=== PATIENT | female | born 1940 | race Caucasian/White ===

== ENCOUNTER 2019-02-26 06:45 | Inpatient (IN) ==
--- NOTE | 2019-02-26 06:54 | History & Physical Report ---
Date of Encounter: 02/26/19 Time of Encounter: 06:54 24 Hour HP Update - Instructions Instructions: If the History and Physical is less than 30 days old and was completed prior to A.M. admission and or procedure and has NOT been updated on calendar day of procedure please complete this update prior to performing procedure. - Update Patient reports changes in Medical Condition: No Changes in examination, assessment, or condition: No Changes in Medication: No Preop tests/diagnostics Reviewed: Yes Surgery Remains Indicated: Yes Consent for Planned Operative Procedure(s) Verified: Yes - Pre-Operative Checklist Preoperative Checklist Indicated: No Prophylactic Antibiotic Ordered: Yes Is VTE Prophylaxis Indicated?: Yes
[2019-02-26] MEDS ORDERED: Dexamethasone 4 MG/ML VIAL ONE (07:18)
[2019-02-26] MEDS ORDERED: *HR* Succinylcholine 200 MG/10 ML VIAL IVP ONE (07:18)
[2019-02-26] MEDS ORDERED: Ethanol\\Acetic Acid\\Na Ace\\Ben 1,000 ML IRRIG.SOLN IR ONE (07:18)
[2019-02-26] MEDS ORDERED: Lidocaine -MPF 2% 2 ML VIAL ONE (07:18)
[2019-02-26] MEDS ORDERED: Ondansetron 4 MG/2 ML VIAL ONE (07:18)
[2019-02-26] MEDS ORDERED: Lidocaine HCL 4 ML Topical Solution (Laryng-O-Jet Kit Sterile Pak) TP ONE (07:19)
[2019-02-26] MEDS ORDERED: *HR* Propofol 200 MG/20 ML VIAL IVP ONE (07:19)
[2019-02-26] MEDS ORDERED: *HR* FentaNYL (PF) 100 MCG/2 ML VIAL ONE (07:19)
[2019-02-26] MEDS ORDERED: Acetaminophen IV 1,000 MG/100 ML INFUS..BTL IVPB ONE (07:38)
[2019-02-26] MEDS ORDERED: *HR* OxyCODONE Immed Rel 5 MG TABLET PO PRN ×2 (07:39→10:49)
--- NOTE | 2019-02-26 07:42 | Anesthesia Evaluation PreOp ---
Date of Encounter: 02/26/19 Time of Encounter: 07:40 - Past History Planned Operation: Right total shoulder, reverse, Left shoulder injection Cardiac History: HTN, Arrhythmia (bigeminy after surgery - per patient, has been seen by a ux specialist since (had negative stress 2-2018)) Pulmonary History: LE Dx (has CPAP machine, setting 8 mmHg) JAVASCRIPT ENGINEER History: Denies Any Significant HX Other Medical History: Denies Any Significant HX Anesthesia History: Problems (post-op respiratory failure (requires supplemental oxygen after surgery - sometimes for a few days)) Medications and Allergies Allergy/AdvReac Type Severity Reaction Status Date / Time No Known Allergies Allergy Verified 02/26/19 07:37 - Meds/Allergy Pre-op Review Medications Reviewed: Yes Allergies Reviewed: Yes Beta Blockers on Current Med List: Yes If Beta Blockers taken, Date/Time (Last Dose taken): 02-26-19 metoprolol 3:30 Anesthesia Results - Labs Laboratory Tests 02/19/19 02/19/19 02/19/19 09:50 09:50 09:50 WBC 7.4 Hgb 13.6 Hct 42.8 Plt Count 318 PT 11.5 INR 1.0 APTT 32.8 Sodium 139 Potassium 3.7 Chloride 99 Carbon Dioxide 32 H BUN 33 H Creatinine 0.72 Est GFR ( Amer) > 60 Est GFR (Non-Af Amer) > 60 BUN/Creatinine Ratio 46 H - Imaging EKG: report reviewed, image reviewed (SINUS RHYTHM WITH FIRST DEGREE AV BLOCK BORDERLINE LEFT AXIS DEVIATION) Anesthesia Exam Last Vital Signs Temp 98.0 F 02/26/19 07:24 Pulse 67 02/26/19 07:24 Resp 18 02/26/19 07:24 BP 117/64 02/26/19 07:24 Pulse Ox 92 02/26/19 07:24 Weight: 115 kg NPO (# of Hours): > 8 hrs - HEENT Pupil (Motor): Pupils equal, EOMI Mallampati: III Teeth: Normal Oral Opening: Greater than 3 - JAVASCRIPT ENGINEER LOC: Oriented - Cardiac Rhythm: Regular Murmur: None - Pulmonary Breath Sounds: bilateral Clear Respiratory Effort: Symmetrical Anesthesia Assess/Plan ASA Score: 3 Level of consciousness: Cooperative Anesthetic Plan: General, Regional Nerve Block Regional Nerve Block Plan: Supraclavicular Monitoring Plan: Standard Monitors Recovery Plan: PACU
[2019-02-26] MEDS ORDERED: Ropivacaine/PF 0.5% 30 ML VIAL ONE (07:44)
[2019-02-26] MEDS ORDERED: MethylPREDNISolone Acet(DEPOT) 80 MG/ML VIAL ONE (07:46)
[2019-02-26] MEDS ORDERED: MethylPREDNISolone Acet(DEPOT) 40 MG/ML VIAL ONE (07:46)
[2019-02-26] MEDS ORDERED: ROPIVACAINE/PF/NS 0.25% 1 EACH SYRINGE INTRAART ONE (07:54)
[2019-02-26] MEDS ORDERED: CeFAZolin Syr 2,000MG/20 ML 2,000 MG/20 ML SYRINGE IVPB ONE (07:56)
[2019-02-26] MEDS ORDERED: Ringers Solution, Lactated 1,000 ML IVC SCH ×2 (08:00→10:49)
--- NOTE | 2019-02-26 09:16 | Anesthesia Procedures ---
Date of Encounter: 02/26/19 Time of Encounter: 08:38 Procedures: Anesthesia - Nerve Block Procedure Date: 02/26/19 Time: 08:38 Allergies/Adv Reactions: nkda Pre-op Diagnosis: right shoulder and left shoulder arthritis Surgical Procedure: right total shoulder /left shoulder injection Checklist: Correct Patient Identifier, Correct procedure, History checked Correct side: Right Blood Thinner: No Monitor Applied: EKG, BP, Pulse Oximetry Supplemental Oxygen via Nasal Cannula (L/min): 2 Sedation: Fentanyl (mcg): 100 Indication: Post Op Analgesia Pre-op Neuro Deficits: No Block Type: Supraclavicular (icb/scp) Catheter placed: No Sterile Technique: Yes Ultrasound used: Yes Anatomy identified: Yes Visual spread of Local: Yes Neuro Stimulation: Yes Nerve Stimulator Range: 0.2 - 0.4 mA Blood on Needle Aspiration: No Smooth Injection of Local: Yes Pain with Injection of Local: No Prep: Chlorhexadine Needle: 22 x 50 mm Stimuplex Local: Ropivacaine (0.5% with 8mg decadron for sc block -20ml ), Other (0.25% ropi icb+scp 10ml each ) Volume (cc): 30 Number of Attempts: 1 Complications: None/effective block Vitals: Vital Signs - Last 8 Hours Temp Pulse Resp BP Pulse Ox 02/26/19 08:35 65 18 154/79 98 02/26/19 07:24 98.0 F 67 18 117/64 92 Intake and Output 02/25/19 02/26/19 02/26/19 23:59 07:59 15:59 Other: Weight 114.759 kg Patient Weight 02/26/19 23:59 Weight 114.759 kg
--- NOTE | 2019-02-26 09:38 | Orthopedic Operative Note ---
Date of procedure: 02/26/19 Pre-op diagnosis: Shoulder pain, right shoulder cuff tear arthropathy Post-op diagnosis: same Procedure: Procedure: Total Shoulder Replacment Reverse, right, left shoulder subacromial injection Estimated blood loss: 50 cc Hardware: Metal and polyethylene replacement: Arthrex 28, +2 , 30 mm screw glenoid baseplate, 4 locking 5.5 screw, 22+4 glenosphere, 10 Bantry humeral stem, insert 6 metal 3 Cande Exam Under anesthesia: Full motion no instability both shoulders Procedural Notes: Irreparable rotator cuff tear Operative procedure: The patient was brought to the operating room and placed on the operating room table. After general anesthesia was administered the operative shoulder was examined. Findings were noted. The patient underwent a corticosteroid injection into the left shoulder under sterile conditions after timeout was performed. The patient was placed in the modified beachchair position. All pressure points were padded appropriately. And the head was stabilized in the neutral position. The operative extremity was prepped and draped in the sterile surgical fashion. The patient received IV antibiotics prior to skin incision. A standard deltopectoral approach was made to the operative shoulder. Incision was made to the skin and subcutaneous tissue,hemo stasis was obtained with Bovie cautery. Using careful blunt dissection the cephalic vein was identified and mobilized medially. The deltopectoral interval was developed and the clavipectoral fascia was incised. The subscap was released off the lesser tuberosity and tagged with #2 FiberWire suture subscap was irreparable. The humerus was dislocated patient noted to have irreparable tear supraspinatus tendon, and the humeral cut was made along the anatomic neck. Anterior and posterior Bankart retractors were placed to expose the glenoid. The glenoid g uide was seated and the centering hole was made. It was reamed with the appropriate reamer. The 28, +2, 30 mm screw, baseplate was seated and secured with 4 locking 5.5 screw. The baseplate was irrigated and dried and the 42+4 Glenosphere was seated and secured with the Senior taper. The Senior taper was tested and found to be secure, glenosphere fixation was secondarily secured with the central screw. The humerus was redislocated and prepared with the diaphyseal reamers, followed by a broaching process up to the appropriate size 10 Bantry in the patient's anatomic version. The metaphyseal reamer was then utilized. Trial reduction found the shoulder to be relocatable. Trial components were removed and 10 Bantry stem was impacted in place in the patient's anatomic version. Trial reduction found the shoulder to be relocatable and stable with the appropriate 6 metal 3 Cande Trial component was removed and the real implant was seated and secured the shoulder was reduced. The shoulder had excellent motion and excellent stability and no evidence of dislocation. The deep tissue was irrigated with pulse irrigation. The PA close the shoulder. The deltopectoral interval was closed with a running #1 PDS suture, subcutaneous tissue was irrigated and closed with 0 PDS suture, the skin was closed with Dermabond. The patient was placed in a sterile dressing, abduction brace and extubated. The patient was then transferred to the recovery room in stable condition. Anesthesia: GETA Surgeon: Robert Turner Was there an farm assistant present: Yes Meat Counter Clerk: Lucas Guerrero Estimated blood loss (cc): 50 Condition: stable Disposition: PACU
--- NOTE | 2019-02-26 10:34 | Anesthesia Evaluation Post Op ---
Date of Encounter: 02/26/19 Time of Encounter: 10:34 - Vital Signs Vital Signs: Vital Signs/O2 Sat, Most Current Temp Pulse Resp BP Pulse Ox 97.9 F 71 18 140/79 93 02/26/19 10:00 02/26/19 10:22 02/26/19 10:22 02/26/19 10:22 02/26/19 10:22 - Lungs Lungs: Clear Ascult./Percussion - Airway Airway: Non-obstructed - Cardiovascular Regular Rate, Baseline Rhythm - Mental Status Mental Status: Alert & Oriented, Answers Appropriately - Pain Pain Scale: 0 - Nausea Vomiting Nausea Vomiting: Not Present - Hydration Hydration: Ice chips - Discharge PostOp Status: Transfer Patient to floor
[2019-02-26 10:35] LABS: Hematocrit 38.2 % (35.3-44.9); Hemoglobin 12.3 g/dL (11.5-15.4)
[2019-02-26] MEDS ORDERED: MOM Conc 10 ML UD.LIQ PO PRN (10:49)
[2019-02-26] MEDS ORDERED: Sennosides 8.6 MG TABLET PO PRN (10:49)
[2019-02-26] MEDS ORDERED: Ibuprofen 200 MG TABLET PO PRN (10:49)
[2019-02-26] MEDS ORDERED: GINGER ROOT 550 MG PO SCH (10:49)
[2019-02-26] MEDS ORDERED: traMADol 50 MG TABLET PO PRN (10:49)
[2019-02-26] MEDS ORDERED: BIOTIN 10 MG PO SCH (10:49)
[2019-02-26] MEDS ORDERED: Krill Oil 1,000 Mg PO SCH (10:49)
[2019-02-26] MEDS ORDERED: *HR* OxyCODONE/APAP 5/325 TABLET PO PRN (10:49)
[2019-02-26] MEDS ORDERED: Naloxone 0.4 MG/ML INJ IVP PRN (10:49)
[2019-02-26] MEDS ORDERED: SLOW MAG 71.5 MG PO SCH (10:49)
[2019-02-26] MEDS ORDERED: NON-FORMULARY MEDICATION 1 EACH EACH (Ubidecarenone [Co Q-10] 100 MG) PO SCH (10:49)
[2019-02-26] MEDS ORDERED: Temazepam 15 MG CAPSULE PO PRN (10:49)
[2019-02-26] MEDS ORDERED: Ondansetron 4 MG/2 ML VIAL IVP PRN (10:49)
[2019-02-26] MEDS: Losartan/HCTZ 50-12.5 TABLET PO SCH (13:24)
[2019-02-26] MEDS: Metoprolol XL (24 HR) Succ 50 MG TAB.ER.24H PO SCH (13:24)
[2019-02-26] MEDS: Pyridoxine (B-6) 50 MG TABLET PO SCH (13:37)
[2019-02-26] MEDS: VITAM PO SCH (13:37)
[2019-02-26] MEDS: Cyanocobalamin (B-12) 1,000 MCG TABLET PO SCH (13:37)
[2019-02-26] MEDS: Folic Acid 1 MG TABLET PO SCH (13:43)
--- NOTE | 2019-02-26 15:40 | Discharge Summary ---
Orders not resulted at time of discharge: Pending orders 02/26/19 09:41 Surgical Pathology [PTH] Routine Date of Encounter: 03/01/19 Time of Encounter: 12:00 - Discharge Diagnosis (1) Rotator cuff tear arthropathy of right shoulder Priority: Primary Status: Chronic (2) Status post total replacement of right shoulder Priority: Primary Status: Acute (3) Arthritis of right shoulder region Priority: Primary Status: Chronic (4) CAD (coronary artery disease) Priority: Secondary Status: Chronic Qualifiers: Coronary Disease-Associated Artery/Lesion type: unspecified vessel or lesion type [place] vs. transplanted heart: unspecified whether in[place] or transplanted heart Associated angina: angina presence unspecified Qualified Code(s): I25.10 - Atherosclerotic heart disease of [place] coronary artery without angina pectoris (5) Fibromyalgia Priority: Secondary Status: Chronic (6) Hyperparathyroidism Priority: Secondary Status: Chronic (7) EL (obstructive sleep apnea) Priority: Secondary Status: Chronic (8) Obesity Priority: Secondary Status: Chronic Qualifiers: Obesity type: unspecified obesity type Obesity classification: unspecified obesity classification Serious obesity comorbidity presence: unspecified whether serious comorbidity present Qualified Code(s): E66.9 - Obesity, unspecified (9) Thyroid disorder Priority: Secondary Status: Chronic - Hospital Course Hospital course: Ms. Escobar is a 78 year old female POD#3 s/p Total Shoulder Replacment Reverse, right, left shoulder subacromial injection [ Shoulder pain, right shoulder cuff tear arthropathy]02/26/19 The patient's postoperative course was uneventful. Progressed from intravenous analgesic needs to oral analgesic needs only. Remained neurovascularly intact and mobilized satisfactorily. All radiographic studies were satisfactory. Patient course and disposition was followed by Dr. Turner. Patient seen by Dr. Salomon as discharging physician on this day. Patient is discharged to [facility] for therapy as plan for rehabilitation and outpatient orthopedic follow up has been arranged. - Time Spent with Patient Total time spent providing and/or coordinating discharge services: - Discharge Medications Prescriptions: New HYDROcodone/Acet 5/325 mg [Midway 5-325 mg] 1 tab PO Q6H PRN 5 Days #20 tab PRN Reason: Severe Pain Continued Alana Root 550 mg PO QAM Cod Liver Oil 1 cap PO QAM Cholecalciferol (Vitamin D3) [Dialyvite Vitamin D] 5,000 units PO QAM Zinc Sulfate [Zinc-15] 66 mg PO QPM Ubidecarenone [Co Q-10] 100 mg PO QAM Folic Acid 1 mg PO QAM Biotin 10 mg PO QAM Pyridoxine (B-6) [Vitamin B-6] 50 mg PO QAM Cyanocobalamin (Vitamin B-12) [Vitamin B-12] 100 mcg PO DAILY DULoxetine [Cymbalta] 30 mg PO BID Ibuprofen [Advil] 200 mg PO TID PRN PRN Reason: Pain Metoprolol Succinate [Toprol Xl] 25 mg PO QAM Amlodipine Besylate 5 mg PO QPM Aspirin [Lo-Dose Aspirin EC] 81 mg PO QPM Losartan/Hydrochlorothiazide [Hyzaar 100-25 Tablet] 1 tab PO QAM Levothyroxine [Synthroid] 112 mcg PO QAM Magnesium Chloride [Slow-Mag] 71.5 mg PO BID Calcitriol 0.5 mcg PO BID Krill/Om-3/Dha/Epa/Phospho/Ast [Krill Oil 1,000 mg Softgel] 1,000 mg PO QAM PrednisoLONE Acetate 1% Opth [PredFORTE 1%] 1 drop LEFT EYE DAILY Ketorolac OPTH Soln [Acular] 1 drop LEFT EYE TID Ciprofloxacin HCL [Ciloxan OPTH Soln] 1 drop LEFT EYE TID Home Medications: Amlodipine Besylate 5 mg PO QPM 02/26/19 [History] Aspirin [Lo-Dose Aspirin EC] 81 mg PO QPM 02/26/19 [History] Biotin 10 mg PO QAM 02/26/19 [History] Calcitriol 0.5 mcg PO BID 02/26/19 [History] Cholecalciferol (Vitamin D3) [Dialyvite Vitamin D] 5,000 units PO QAM 02/26/19 [History] Ciprofloxacin HCL [Ciloxan OPTH Soln] 1 drop LEFT EYE TID 02/26/19 [History] Cod Liver Oil 1 cap PO QAM 02/26/19 [History] Cyanocobalamin (Vitamin B-12) [Vitamin B-12] 100 mcg PO DAILY 02/26/19 [History] DULoxetine [Cymbalta] 30 mg PO BID 02/26/19 [History] Folic Acid 1 mg PO QAM 02/26/19 [History] Alana Root 550 mg PO QAM 02/26/19 [History] HYDROcodone/Acet 5/325 mg [Midway 5-325 mg] 1 tab PO Q6H PRN 5 Days #20 tab 02/26/19 [Rx] Ibuprofen [Advil] 200 mg PO TID PRN 02/26/19 [History] Ketorolac OPTH Soln [Acular] 1 drop LEFT EYE TID 02/26/19 [History] Krill/Om-3/Dha/Epa/Phospho/Ast [Krill Oil 1,000 mg Softgel] 1,000 mg PO QAM 02/26/19 [History] Levothyroxine [Synthroid] 112 mcg PO QAM 02/26/19 [History] Losartan/Hydrochlorothiazide [Hyzaar 100-25 Tablet] 1 tab PO QAM 02/26/19 [History] Magnesium Chloride [Slow-Mag] 71.5 mg PO BID 02/26/19 [History] Metoprolol Succinate [Toprol Xl] 25 mg PO QAM 02/26/19 [History] PrednisoLONE Acetate 1% Opth [PredFORTE 1%] 1 drop LEFT EYE DAILY 02/26/19 [History] Pyridoxine (B-6) [Vitamin B-6] 50 mg PO QAM 02/26/19 [History] Ubidecarenone [Co Q-10] 100 mg PO QAM 02/26/19 [History] Zinc Sulfate [Zinc-15] 66 mg PO QPM 02/26/19 [History] Allergies/Adverse Reactions: Allergy/AdvReac Type Severity Reaction Status Date / Time No Known Allergies Allergy Verified 02/26/19 07:37 Date of admission: 02/26/19 10:46 Primary care physician: Debi Ramey DO Consults: 02/26/19 10:49 Consult to Occupational Therapy [CONS] Routine Comment: post shoulder surgery Reason for Consult: post shoulder surgery Does patient have active BEDREST order?: No Is patient medically & hemodynamically stable?: Yes Consult to Physical Therapy [CONS] Routine Comment: post shoulder surgery Reason for Consult: post shoulder surgery Does patient have active BEDREST order?: No Is patient medically & hemodynamically stable?: Yes Consult to Purchasing Engineer [CONS] Routine Reason for SW Consult: shoulder surgery RT Post Op Consult [CONS] Routine Discharging clinician: Robert Turner Anticipated date of discharge: 03/01/19 - VTE Documentation of Mechanical Device: Venous foot pump, device Labs on day of discharge: Labs from last 24 hours 02/26/19 10:08 Hgb 12.3 Hct 38.2 - Impressions ITS Impressions Shoulder X-Ray 02/26/19 01:00 IMPRESSION: Postoperative change of right shoulder reverse arthroplasty, without hardware complication. D/ 02/26/2019 11:33:24 Chang Ring MD / brayden Interpreting Provider: Chang Ring MD - Patient Status Disposition: Transfer SNF Condition: Good Functional capacity at discharge: uses cane/walker Overall status at discharge: patient is progressing back to baseline - Discharge Instructions Follow Up With: Cyndie Preston PAC [Physician Peeler Operator] - 03/06/19 1:30 pm Robert Turner MD [Partnered Physician] - 03/26/19 4:40 pm Additional Instructions: Discharge Instructions: Total Shoulder Please call [facility] ([phone]), your Primary Care Physician, or report to the Emergency Room if you have any of the following symptoms: Nausea, vomiting, fever greater that 101.5, swelling, chest pain, shortness of breath, increased pain/redness/drainage/odor for your incision site, numbness/tingling, or any other concerning symptoms. ACTIVITY: Always keep your arm in the sling. Do not raise your arm away from your body. Do not use your arm to help with getting in or out of bed. No weight bearing permitted. Only perform those exercises given to you by your therapist. Incentive Spirometer 10 times an hour. MEDICATIONS: Upon discharge resume your home medications. Take all the medications as prescribed. Take a stool softener if taking narcotic pain medications. Stool softeners are only effective if you drink enough fluids. Drink 6-8 glass of water or fluids a day, unless this is not allowed for another health problem. Despite using stool softeners, if you haven't had a bowel movement in 3 days, please switch to a gentle laxative. Gentle laxatives are sold over the counter. You should have a bowel movement within 24 hours, if not call the office. You will be discharged from the hospital with a prescription for pain medication. You are encouraged to decrease the use of narcotic pain medication as tolerated. Should you require a refill, please call the office. [facility] prescribes narcotic pain medication for only 4-6 weeks after surgery. If you require pain medication beyond this time period, you may be referred to your Primary Care Physician or to the Pain Clinic for further evaluation. Plan ahead for refills on pain medication as many narcotics either need to be picked up at the office or mailed. It is best to call 48-72 hours in advance of needing a prescription refill so you don't run out of medication. To help control the post-operative pain, you may take NSAIDs (Aleve,Advil, Motrin, Ibuprofen, Naprosyn) or Tylenol as prescribed on the bottle in addition to the pain medication. WOUND CARE: Leave the dressing on for 7-10 days. You may change the dressing if it becomes saturated greater than 50%. Do not get the dressing wet at anytime. Wash your hands with antibacterial soap, rinse and dry prior to any wound care. If you have joshua the visiting nurse or rehab facility can remove the stapes 10-14 days after surgery and place steri-strips across the wound. Leave the steri-strips in place until they fall off on their own. You may let water from the shower run on top of the steri-strips. If you do not have a visiting nurse or rehab facility, you will need to return to the office at 10-14 days for the joshua to be removed. If you have itching or redness around the dressing call the office. FOLLOW-UP: Please follow up with your surgeon in the orthopedic clinic, as scheduled - Diet and Activity Activity: as per physical therapy Diet: advance to your usual diet
[2019-02-26] MEDS: Aspirin Enteric Coated 81 MG Tablet PO SCH (17:45)
[2019-02-26] MEDS: amLODIPine 5 MG TABLET PO SCH (17:45)
[2019-02-26] MEDS: *HR* Enoxaparin 30 MG/0.3 ML SYRINGE SQ SCH (17:45)
[2019-02-26] MEDS ORDERED: ZINC SULFATE 66 MG PO SCH (18:00)
[2019-02-26] MEDS ORDERED: *HR* Enoxaparin 30 MG/0.3 ML SYRINGE SQ SCH (18:00)
[2019-02-27 04:46] LABS: Hematocrit 35.5 % (35.3-44.9); Hemoglobin 11.7 g/dL (11.5-15.4)
[2019-02-27 05:03] LABS: BUN/Creatinine Ratio 38 (6-26); Blood Urea Nitrogen 27 mg/dL (8-23); Calcium 9.8 mg/dL (8.6-10.3); Carbon Dioxide 26 mEq/L (23-29); Chloride 102 mEq/L (98-107); Glucose 156 mg/dL (70-105); Osmolality,Calculated 294 (280-300); Potassium 3.5 mEq/L (3.5-5.1); Sodium 138 mEq/L (136-145); eGFR For African Americans > 60 (> 60); eGFR For Non-African Americans > 60 (> 60)
[2019-02-27] MEDS: *HR* Enoxaparin 30 MG/0.3 ML SYRINGE SQ SCH ×2 (05:20→17:24)
[2019-02-27] MEDS: *HR* HYDROcodone/Acet 10/325 mg TABLET PO PRN ×5 (05:20→21:40)
--- NOTE | 2019-02-27 07:47 | Orthopedics Progress Note ---
Date of Encounter: 02/27/19 Time of Encounter: 07:46 Subjective Interval history: Patient was seen this morning doing well without complaints. Afebrile vital signs stable. Operative extremity: Neurovascularly intact Dressing clean dry and intact Calves nontender Assessment and plan: Continue with postoperative care Hematocrit 35 Objective Vital signs: Vital Signs Temp Pulse Resp BP Pulse Ox 02/27/19 06:11 98.5 F 78 18 139/75 96 02/26/19 23:09 98.3 F 83 16 142/80 94 02/26/19 23:06 98.1 F 88 17 154/84 93 02/26/19 21:10 94 02/26/19 18:30 98.1 F 67 16 116/67 94 02/26/19 13:49 97.5 F L 66 16 127/76 98 02/26/19 12:00 97.3 F L 60 16 103/63 95 02/26/19 11:33 97.6 F 61 16 108/68 94 02/26/19 11:06 97.3 F L 61 16 126/76 98 02/26/19 10:30 97.9 F 66 18 137/74 98 02/26/19 10:20 71 18 140/79 93 02/26/19 10:10 72 18 134/72 94 02/26/19 10:00 97.9 F 77 18 147/87 100 02/26/19 08:35 65 18 154/79 98 Intake and Output 02/26/19 02/26/19 02/27/19 15:59 23:59 07:59 Intake Total 100 / 100 100 / 100 Output Total 50 / 350 300 / 350 300 / 300 Balance -50 / -250 -200 / -250 -200 / -200 Intake: IV Fluids 100 / 100 100 / 100 Ancef 2,000 MG In 0.9 % Sodium 100 / 100 100 / 100 Chloride 100 ML @ 200 mls/hr IVPB Q8HR [facility] Rx#:[id number] Output: Urine 300 / 300 300 / 300 Estimated Blood Loss 50 / 50 Other: # Voids 1 Weight 114.8 kg Patient Weight 02/27/19 23:59 Weight 114.8 kg - Labs CBC & BMP: 02/27/19 03:47 02/27/19 03:47 Labs: Abnormal lab results BUN 27 mg/dL (8-23) H 02/27/19 03:47 BUN/Creatinine Ratio 38 (6-26) H 02/27/19 03:47 Glucose 156 mg/dL (70-105) H 02/27/19 03:47 Consult Discharge Plan - Plan Referrals: Debi Ramey DO [Primary Care Provider] - Prescriptions: HYDROcodone/Acet 5/325 mg [Sinclair 5-325 mg] 1 tab PO Q6H PRN 5 Days #20 tab PRN Reason: Severe Pain
--- NOTE | 2019-02-27 08:56 | Physician Discharge Referral ---
ExtendedCare Referral Info Transfer To: [facility] Provider in Charge: Dr. Robert Turner - Diagnosis (1) Rotator cuff tear arthropathy of right shoulder Priority: Primary Status: Chronic (2) Arthritis of right shoulder region Priority: Primary Status: Chronic (3) Left shoulder pain Priority: Primary Status: Chronic (4) Status post total replacement of right shoulder Priority: Primary Status: Acute (5) CAD (coronary artery disease) Priority: Secondary Status: Chronic (6) Hyperparathyroidism Priority: Secondary Status: Chronic (7) Thyroid disorder Priority: Secondary Status: Chronic (8) Fibromyalgia Priority: Secondary Status: Chronic (9) EL (obstructive sleep apnea) Priority: Secondary Status: Chronic (10) Obesity Priority: Secondary Status: Chronic Expected Duration of Placement: less than 30 days Prognosis: Good Aware of Diagnosis: Patient Aware of Prognosis: Patient - Transfer Medications Prescriptions: HYDROcodone/Acet 5/325 mg [[place] 5-325 mg] 1 tab PO Q6H PRN 5 Days #20 tab PRN Reason: Severe Pain Home Medications: Amlodipine Besylate 5 mg PO QPM 02/26/19 [History] Aspirin [Lo-Dose Aspirin EC] 81 mg PO QPM 02/26/19 [History] Biotin 10 mg PO QAM 02/26/19 [History] Calcitriol 0.5 mcg PO BID 02/26/19 [History] Cholecalciferol (Vitamin D3) [Dialyvite Vitamin D] 5,000 units PO QAM 02/26/19 [History] Ciprofloxacin HCL [Ciloxan OPTH Soln] 1 drop LEFT EYE TID 02/26/19 [History] Cod Liver Oil 1 cap PO QAM 02/26/19 [History] Cyanocobalamin (Vitamin B-12) [Vitamin B-12] 100 mcg PO DAILY 02/26/19 [History] DULoxetine [Cymbalta] 30 mg PO BID 02/26/19 [History] Folic Acid 1 mg PO QAM 02/26/19 [History] Alana Root 550 mg PO QAM 02/26/19 [History] HYDROcodone/Acet 5/325 mg [[place] 5-325 mg] 1 tab PO Q6H PRN 5 Days #20 tab 02/26/19 [Rx] Ibuprofen [Advil] 200 mg PO TID PRN 02/26/19 [History] Ketorolac OPTH Soln [Acular] 1 drop LEFT EYE TID 02/26/19 [History] Krill/Om-3/Dha/Epa/Phospho/Ast [Krill Oil 1,000 mg Softgel] 1,000 mg PO QAM 02/26/19 [History] Levothyroxine [Synthroid] 112 mcg PO QAM 02/26/19 [History] Losartan/Hydrochlorothiazide [Hyzaar 100-25 Tablet] 1 tab PO QAM 02/26/19 [History] Magnesium Chloride [Slow-Mag] 71.5 mg PO BID 02/26/19 [History] Metoprolol Succinate [Toprol Xl] 25 mg PO QAM 02/26/19 [History] PrednisoLONE Acetate 1% Opth [PredFORTE 1%] 1 drop LEFT EYE DAILY 02/26/19 [History] Pyridoxine (B-6) [Vitamin B-6] 50 mg PO QAM 02/26/19 [History] Ubidecarenone [Co Q-10] 100 mg PO QAM 02/26/19 [History] Zinc Sulfate [Zinc-15] 66 mg PO QPM 02/26/19 [History] Allergies/Adverse Reactions: Allergy/AdvReac Type Severity Reaction Status Date / Time No Known Allergies Allergy Verified 02/26/19 07:37 - Respiratory Orders Smoking Cessation: Smoking cessation has been advised. For more information, call the [place] [employer] Quit Line at 0-242-BWSUNOW. - Ancillary Orders May use pressure relief devices daily prn, May go on PARVEEN w/family/respon libertarian w/meds at nurse discretion PRN, May consult with Dentist, Desulfurizer Operator, Aquaculture Farmer PRN - Mobility Orders Chair, Ambulate - Rehabiliation Orders Rehab Potential: Good Rehab Orders: Evaluation for Physical Therapy, Evaluation for Occupational Therapy Other: Opsite placed. Keep dressing intact until first follow up appointment. If greater than 50% saturated, notify office, remove dressing and place appropriate dressing back in place. Leave Zipline intact. Opsite dressing is water resistant, not water-proof. OK to shower, but do not get dressing wet. PT/OT. NWB to affected upper extremity. Follow Shoulder Precautions x 6 weeks. Stay in brace during activity and at night. Remove brace during exercises. ICE and elevate extremity frequently throughout the day. - Treatments Skin tear care topically daily PRN per policy CERTIFICATION: I certify that the transfer of the above named patient to an Extended Care Facility is necessary for the continuing treatment of the diagnosis listed. The above information is true and accurate reflection of patient's current condition. Confidential - Redisclosure prohibited without a patient's written consent.
--- NOTE | 2019-02-27 08:57 | Event Note ---
Date of Encounter: 02/27/19 Time of Encounter: 11:30 POD#1 s/p Total Shoulder Replacment Reverse, right, left shoulder subacromial injection [ Shoulder pain, right shoulder cuff tear arthropathy]02/26/19 Patient seen at bedside. A&Ox3 Dressing and incision c/d/i No calf tenderness, erythema, or warmth. Neurovascularly intact b/l LE. Labwork, vitals, and medications reviewed. Pain control: Adequate Participating in therapy. All questions and concerns addressed. Educated on use of incentive spirometer, ambulation, and hydration. Patient educated on post-operative restrictions and care. Addressed: see above. Patient course and disposition discussed with Dr. Turner D/C plan: awaiting ECF placement
[2019-02-27] MEDS: Folic Acid 1 MG TABLET PO SCH (09:47)
[2019-02-27] MEDS: Pyridoxine (B-6) 50 MG TABLET PO SCH (09:47)
[2019-02-27] MEDS: Cyanocobalamin (B-12) 1,000 MCG TABLET PO SCH (09:47)
[2019-02-27] MEDS: Losartan/HCTZ 50-12.5 TABLET PO SCH (09:47)
[2019-02-27] MEDS: VITAM PO SCH (09:47)
[2019-02-27] MEDS: Metoprolol XL (24 HR) Succ 50 MG TAB.ER.24H PO SCH (09:48)
[2019-02-27] MEDS: amLODIPine 5 MG TABLET PO SCH (17:24)
[2019-02-27] MEDS: Aspirin Enteric Coated 81 MG Tablet PO SCH (17:24)
[2019-02-28] MEDS: *HR* HYDROcodone/Acet 10/325 mg TABLET PO PRN ×4 (01:40→18:15)
[2019-02-28 02:13] LABS: BUN/Creatinine Ratio 42 (6-26); Blood Urea Nitrogen 36 mg/dL (8-23); Carbon Dioxide 28 mEq/L (23-29); Chloride 99 mEq/L (98-107); Glucose 147 mg/dL (70-105); Hematocrit 35.9 % (35.3-44.9); Hemoglobin 11.5 g/dL (11.5-15.4); Osmolality,Calculated 293 (280-300); Potassium 3.8 mEq/L (3.5-5.1); Sodium 136 mEq/L (136-145); eGFR For African Americans > 60 (> 60); eGFR For Non-African Americans > 60 (> 60)
[2019-02-28] MEDS: *HR* Enoxaparin 30 MG/0.3 ML SYRINGE SQ SCH ×2 (05:55→16:18)
--- NOTE | 2019-02-28 07:51 | Orthopedics Progress Note ---
Date of Encounter: 02/28/19 Time of Encounter: 07:50 Subjective Interval history: Patient was seen this morning doing well without complaints. Afebrile vital signs stable. Operative extremity: Neurovascularly intact Dressing clean dry and intact Calves nontender Assessment and plan: Continue with postoperative care Discharged tomorrow Objective Vital signs: Vital Signs Temp Pulse Resp BP Pulse Ox 02/28/19 06:18 97.5 F L 68 16 144/87 96 02/27/19 18:18 97.2 F L 60 17 149/83 96 02/27/19 14:00 98 F 74 16 117/76 97 02/27/19 11:00 97.9 F 60 18 115/70 96 Intake and Output 02/27/19 02/27/19 02/28/19 15:59 23:59 07:59 Intake Total 240 / 390 50 / 390 Balance 240 / 90 50 / 90 Intake: Oral 240 / 290 50 / 290 Other: Meal Breakfast Dinner Percent of Meal Consumed 60% 100% # Voids 1 1 1 Weight 114.9 kg Patient Weight 02/28/19 23:59 Weight 114.9 kg - Labs CBC & BMP: 02/28/19 01:35 02/28/19 01:35 Labs: Abnormal lab results BUN 36 mg/dL (8-23) H 02/28/19 01:35 BUN/Creatinine Ratio 42 (6-26) H 02/28/19 01:35 Glucose 147 mg/dL (70-105) H 02/28/19 01:35 Consult Discharge Plan - Plan Referrals: Debi Ramey DO [Primary Care Provider] - Prescriptions: HYDROcodone/Acet 5/325 mg [[place] 5-325 mg] 1 tab PO Q6H PRN 5 Days #20 tab PRN Reason: Severe Pain
[2019-02-28] MEDS: Losartan/HCTZ 50-12.5 TABLET PO SCH (08:54)
[2019-02-28] MEDS: Cyanocobalamin (B-12) 1,000 MCG TABLET PO SCH (08:55)
[2019-02-28] MEDS: Folic Acid 1 MG TABLET PO SCH (08:55)
[2019-02-28] MEDS: Metoprolol XL (24 HR) Succ 50 MG TAB.ER.24H PO SCH (08:55)
[2019-02-28] MEDS: VITAM PO SCH (08:55)
[2019-02-28] MEDS: Pyridoxine (B-6) 50 MG TABLET PO SCH (08:55)
--- NOTE | 2019-02-28 11:15 | Event Note ---
Date of Encounter: 02/28/19 Time of Encounter: 11:30 POD#2 s/p Total Shoulder Replacment Reverse, right, left shoulder subacromial injection [ Shoulder pain, right shoulder cuff tear arthropathy]02/26/19 Patient seen at bedside. A&Ox3 Dressing and incision c/d/i No calf tenderness, erythema, or warmth. Neurovascularly intact b/l LE. Labwork, vitals, and medications reviewed. Pain control: Adequate Participating in therapy. All questions and concerns addressed. Educated on use of incentive spirometer, ambulation, and hydration. Patient educated on post-operative restrictions and care. Addressed: see above. Patient course and disposition discussed with Dr. Turner D/C plan: [facility] tomorrow, 03/01
[2019-02-28] MEDS: amLODIPine 5 MG TABLET PO SCH (16:18)
[2019-02-28] MEDS: Aspirin Enteric Coated 81 MG Tablet PO SCH (16:18)
[2019-03-01] MEDS: *HR* HYDROcodone/Acet 10/325 mg TABLET PO PRN ×2 (02:50→08:05)
[2019-03-01] MEDS: *HR* Enoxaparin 30 MG/0.3 ML SYRINGE SQ SCH (05:54)
[2019-03-01 06:54] LABS: Hematocrit 35.3 % (35.3-44.9); Hemoglobin 11.3 g/dL (11.5-15.4)
[2019-03-01 07:09] VITALS: BP 124/72
[2019-03-01 07:17] LABS: BUN/Creatinine Ratio 47 (6-26); Blood Urea Nitrogen 30 mg/dL (8-23); Calcium 9.8 mg/dL (8.6-10.3); Carbon Dioxide 31 mEq/L (23-29); Chloride 100 mEq/L (98-107); Glucose 111 mg/dL (70-105); Osmolality,Calculated 295 (280-300); Potassium 3.8 mEq/L (3.5-5.1); Sodium 139 mEq/L (136-145); eGFR For African Americans > 60 (> 60); eGFR For Non-African Americans > 60 (> 60)
[2019-03-01] MEDS: VITAM PO SCH (07:54)
[2019-03-01] MEDS: Metoprolol XL (24 HR) Succ 50 MG TAB.ER.24H PO SCH (07:54)
[2019-03-01] MEDS: Folic Acid 1 MG TABLET PO SCH (07:55)
[2019-03-01] MEDS: Pyridoxine (B-6) 50 MG TABLET PO SCH (07:56)
[2019-03-01] MEDS: Cyanocobalamin (B-12) 1,000 MCG TABLET PO SCH (07:56)
[2019-03-01] MEDS: Losartan/HCTZ 50-12.5 TABLET PO SCH (07:56)
== END 2019-03-01 11:02 | DRG 483 ==
LOC: SAMDAY 06:45 → 3NENU 10:46
PROVIDERS: ADMIT Orthopaedic Surgery; ATTEND Orthopaedic Surgery